=== PATIENT | male | born 2000 | race Caucasian/White ===

== ENCOUNTER 2021-06-08 22:01 | Emergency (ER) | payer OTHER, SELFPAY ==
[2021-06-08 22:17] VITALS: BP 125/81; PULSE 74; RESP 16; TEMP 36.4; O2SAT 99; BMI 26.6
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
[2021-06-09] MEDS: CELEcoxib 200 mg Capsule 400 MG PO (00:12)
[2021-06-09 00:14] VITALS: BP 105/54; PULSE 58; RESP 18; O2SAT 98
== END 2021-06-09 00:14 | disposition home or self-care (01) ==
PROVIDERS: Emergency Provider Nurse Practitioner Family
DX: S16.1XXA Strain of muscle, fascia and tendon at neck level, initial encounter (principal); V43.52XA Car driver injured in collision with other type car in traffic accident, initial encounter
CPT/HCPCS: 70450; 72125; 99283

== ENCOUNTER 2021-07-16 17:23 | Emergency (ER) | payer OTHER, SELFPAY ==
[2021-07-16 17:51] VITALS: BP 102/65; PULSE 65; RESP 18; TEMP 36.8; O2SAT 98; BMI 26.6
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
[2021-07-16 18:50] VITALS: BP 101/68; PULSE 71; RESP 16; O2SAT 98
--- NOTE | 2021-07-17 13:38 | DCPLANNER ---
Addendum entered by Sharon Bolaños 09/22/21 12:22: Patient had a follow up appointment scheduled with Dr. Carranza - patient did attend appointment. Original Note: architectural practice manager had message to speak with patient about getting established with a primary care physician. architectural practice manager spoke with patient, he stated that he would like for manager case management to get him established with a primary care physician. architectural practice manager called [facility], spoke with Marcia, gave clinic patients information. A follow up appointment was scheduled for Friday, July 23, 2021 at 3:[address] Carranza. architectural practice manager called patient and gave patient the appointment information.
== END 2021-07-16 18:59 | disposition home or self-care (01) ==
PROVIDERS: Emergency Provider Nurse Practitioner Family
DX: M54.6 Pain in thoracic spine (principal)
CPT/HCPCS: 99281